=== PATIENT | female | born 1975 | race Caucasian/White ===

== ENCOUNTER 2023-11-21 16:41 | Emergency (ER) | payer OTHER, MEDICAID ==
[~2023-11-21] VITALS: Ht 149.9 cm; Wt 68.0 kg
[2023-11-21 16:44] VITALS: BP 117/74; PULSE 69; RESP 18; TEMP 97.7; O2SAT 98
[2023-11-21] MEDS ORDERED: ALUMINUM HYD/MAG/SIMETHICONE 30 ML UDC ONE (17:32)
[2023-11-21] MEDS ORDERED: DICYCLOMINE HCL LIQUID 10 MG/5 ML UDC ONE (17:32)
[2023-11-21] MEDS: DICYCLOMINE HCL LIQUID 20 MG, ALUMINUM HYD/MAG/SIMETHICONE 30 ML, LIDOCAINE VISCOUS 2% ... PO ONE (17:36)
[2023-11-21] MEDS: FAMOTIDINE 20 MG TAB PO ONE (17:36)
[2023-11-21 18:04] LABS: BASOPHILS % (AUTO) 0.6 % (0.0-2.0); EOSINOPHILS # (AUTO) 0.2 K/uL (0-0.4); EOSINOPHILS % (AUTO) 3.2 % (0.0-4.0); HEMATOCRIT 39.1 % (36-48); HEMOGLOBIN 13.1 g/dL (12.0-16.0); LYMPHOCYTES # (AUTO) 1.6 K/uL (2.5-16.5); MEAN CORPUSCULAR HEMOGLOBIN 29 pg (27-31); MEAN CORPUSCULAR HGB CONC 34 g/dL (33-37); MEAN CORPUSCULAR VOLUME 84.9 fL (80-94); MONOCYTES # (AUTO) 0.5 K/uL (0.8-1.0); MONOCYTES % (AUTO) 7.3 % (1.7-9.3); NEUTROPHILS # (AUTO) 3.9 K/uL (1.8-7.7); NEUTROPHILS % (AUTO) 62.9 % (42.2-75.2); PLATELET COUNT (AUTO) 340 K/uL (140-450); RED CELL DISTRIBUTION WIDTH 14.1 % (11.6-13.7); WHITE BLOOD COUNT (AUTO) 6.3 K/uL (4.8-10.8)
[2023-11-21 18:05] LABS: INR 0.92 (0.8-1.2); PROTHROMBIN TIME 9.7 secs (10.8-13.4)
[2023-11-21 18:11] LABS: ALANINE AMINOTRANSFERASE 22 U/L (12-78); ALBUMIN 3.9 g/dL (3.4-5.0); ALKALINE PHOSPHATASE 98 U/L (50-136); ASPARTATE AMINOTRANSFERASE 19 U/L (15-37); LIPASE 37 U/L (16-77); TOTAL BILIRUBIN 0.2 mg/dL (0.0-1.0); TOTAL PROTEIN, SERUM 7.1 g/dL (6.4-8.2)
[2023-11-21 18:20] LABS: ANION GAP 12.3 (8-16); CALCIUM 9.4 mg/dL (8.5-10.1); CARBON DIOXIDE 28.9 mmol/L (21-32); CREATININE 0.8 mg/dL (0.6-1.3); POTASSIUM 4.2 mmol/L (3.5-5.1)
[2023-11-21] MEDS ORDERED: EPIN1KIT31 IM (18:51)
[2023-11-21 19:15] VITALS: O2SAT 99
[2023-11-21 19:22] VITALS: BP 121/78; PULSE 67; RESP 18; TEMP 98; O2SAT 99
== END 2023-11-21 19:22 | disposition home or self-care (01) ==
LOC: MED 16:41
DX: R11.2 Nausea with vomiting, unspecified (principal); T78.49XA Other allergy, initial encounter; Z91.040 Latex allergy status; Z79.899 Other long term (current) drug therapy; X58.XXXA Exposure to other specified factors, initial encounter
CPT/HCPCS: 36415; 71045; 80048; 80076; 83690; 83880; 84484; 85025; 85610; 85730; 93005; 99285

== ENCOUNTER 2024-05-24 18:46 | Emergency (ER) | payer MEDICAID, OTHER ==
[~2024-05-24] VITALS: Ht 152.4 cm; Wt 67.1 kg
[~2024-05-24 18:46] MED LIST: EPIN1KIT31 IM
[2024-05-24 19:08] VITALS: BP 116/64; PULSE 62; RESP 16; TEMP 97.4; O2SAT 98
[2024-05-24] MEDS: FLUORESCEIN OPTH STRIP 1 MG OP ONE (19:44)
[2024-05-24] MEDS: TETRACAINE HCL/PF 0.5% OPTH 4 ML BTL OP ONE (19:45)
== END 2024-05-24 19:49 | disposition home or self-care (01) ==
LOC: MED 18:46
DX: H11.32 Conjunctival hemorrhage, left eye (principal); Z79.899 Other long term (current) drug therapy; Z91.013 Allergy to seafood
CPT/HCPCS: 99283